=== PATIENT | male | born 1950 | race Caucasian/White ===

== ENCOUNTER 2022-02-20 10:44 | Day surgery (SDC) | payer MEDICARE, BC, SELFPAY ==
--- OUTSIDE RECORDS SUMMARY | 2022-02-07 09:34 | XMS_ITS | Continuity of Care Document ---
:1950 Author Care Team Providers Name Role Phone MD Luis L Primary Care Physician MEAGHAN Garcia S Attending Physician Allergies, Adverse Reactions, Alerts Allergen Type Severity Reaction Last Verified Status Updated Terbinafine Allergy Mild LOST SENSE August Yes Active OF TASTE 2019 Social History Smoking Status Status Start Date End Date Date of Observat ion Never smoked tobacco August 8:20am (finding) Additional Data Assigned Sex Male Problems Active Problems Medical Problem Onset Date Status Encounter for screening for Active COVID-19 Medications Medication Status Dose Units Route Directions Qty Days Start End Ins tructions Date Date Aspirin Active 81 MG PO Daily 100 Clopidogrel Active 75 MG PO Daily 30 Bisulfate (Plavix) 75 Mg TAB Methenamine Active 1 GM PO Twice A Day 60 Hippurate Metoprolol Active 25 MG PO Daily 30 Succinate (Toprol Xl) 25 Mg TABCR Multiple Active 1 TAB PO Daily Vitamins W/ Minerals (Multivitamin ) 1 Tab TAB Sildenafil Active 50 MG PO As Needed TAKE 1 TAB 1 Citrate HOUR PRIOR T O (Viagra) 50 INTERCOU RSE Mg TAB Tadalafil Active 20 MG PO As Needed 6 TAKE ONE (Cialis) 20 TABLET 3 0 MIN Mg TAB TO 36 HRS PRIOR TO INTERCOURSE Fluticasone Discontin 2 SPRAY EACH Daily 15 November Decembe Propionate ued NOSTR 12th, r 7th, (Nasal) 2017 2017 (Flonase 8:17pm 12:30pm Allergy Relief) 50 Mcg/Act SPR Multivitamins Discontin 1 TAB PO Daily August (Multivitamin ued , /Minerals) 2019 TAB 8:18am Sildenafil Discontin 50 MG PO As Needed August TAKE 1 TAB 1 Citrate ued 16, HOUR PRIOR T O (Viagra) 50 2019 INTERCOU RSE Mg TAB 8:18am Sildenafil Discontin 20 MG PO Three Times ry Citrate ued A Day , (Revatio) 20 2020 Mg TAB 8:18am Tadalafil Discontin 5 MG PO As Needed 22 August TAKE ONE TAB (Cialis) 5 Mg ued , 30 MIN TO 36 TAB 2020 HRS PRIOR TO 8:18am INTERCOURSE Immunizations Immunization Event Not Given Dose 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 In 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 Lot Number Vac cine Date Reason Number Informatio n Statement (VIS) Deta il COVID-19 Pfizer October 15 PFIZER-[employer]IONTECH [id number] 2020 COVID-19 Pfizer October 16 P[employer]ER[employer] [id number] 2020 Procedures Procedure Date Performed Status SARS-COV-2 COVID-19 AMP PRB January 08, 2022 completed Relevant Diagnostic Tests and/or Laboratory Data Laboratory Results Test Date/Time Result Interpretation Reference Result Perfo rming Site Range Comment Coronavirus January 08, NEGATIVE NEGATIVE [facility] [place] (COVID-19)(P 2021 SARS-CoV- novel [address]) 9:39am 2 coronavirus [facility] [address] (SARS-CoV-2) target nucleic acids are not detected by RT-PCR. This result does not rule out SARS-CoV-2 in the patient, as the sensitivity of the test depends on timing of the specimen collection and quality of the specimen. Results should be correlated with the patient's history and clinical presentation . Advance Directives Advance Directive Response Recorded Date/Time Has patient completed a No September 01 8:20am Health Care Directive? Insurance Providers Guarantor Abdirashid Espinoza Address [address] [facility] [address] Contact Info. Home Phone: CELL Payer Policy Id Coverage Id Subscriber's Subscriber Id Effective E xpiration Name Date Date Bc [employer] [id number] Abdirashid Espinoza [id number] Encounters Encounter Location(s) Arrival/Admit Date Discharge/Depart Date Provider(s) Registered [place] January 08, 2022 Anahi Garcia [facility] 9:39am FINANCE INTERN PHILIPPE Registered [facility] January 08, 2022 [facility] 9:30am Office Visit [place] January 08, 2022 Anahi Garcia [facility] 9:30am MEAGHAN PAEZ
[2022-02-20] VITALS (17 sets, daily range): BP systolic 105–133; BP diastolic 24–96; PULSE 52–73; RESP 12–16; TEMP 36.1–36.7; O2SAT 91–96; BMI 23.8
[2022-02-20] MEDS: LACTATED RINGERS 1000 ML 1,000 ML 100 ML IV (11:30)
[2022-02-20] MEDS: LACTATED RINGERS 1000 ML 1,000 ML 35 ML IV (15:15)
--- NOTE | 2022-02-20 15:22 | W.ANESCHARGE ---
Anesthesia Charges Start Date/Time Anesthesia Start Date: 02/20/22 Anesthesia Start Time: 12:08 Stop Date/Time Anesthesia Stop Date: 02/20/22 Anesthesia Stop Time: 15:22 Summary Emergency: No Extremes of Age: Over 70-CPT 18961
--- NOTE | 2022-02-20 15:36 | P.NB_ITS ---
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 Images saved: Yes Medications given in 5ml increments after negative aspiration: Marcaine %: 0.25 mL: 30 Needle gauge: 20 and Exparel mL: 10 Patient tolerated procedure well: Yes Additional comments: Needle noted adjacent to nerve
--- NOTE | 2022-02-20 15:37 | W.ANESCHARGE ---
Anesthesia Charges Start Date/Time Anesthesia Start Date: 02/20/22 Anesthesia Start Time: 12:08 Stop Date/Time Anesthesia Stop Date: 02/20/22 Anesthesia Stop Time: 15:22 Summary Emergency: No
--- NOTE | 2022-02-20 16:09 | PM.GSPRC ---
Operative Note Date of procedure: 02/20/22 Type of Procedure: Laparoscopic right inguinal hernia repair with mesh Procedure Description: After discussing the risks and benefits of the procedure, the patient signed informed consent.? The operative site was marked and the patient was brought to the operating room and placed on the operating table in supine position.? Care was taken to pad the patient's pressure points.?? The patient was then intubated by anesthesia.?? The operative site was then prepped and draped in the usual sterile fashion.? A time-out was then performed. A curvilinear incision was made below the umbilicus. Dissection was carried down to subcutaneous tissue until the anterior rectus fascia was encountered. This was incised off the midline on the right. There was some scarring from the patient's prior surgery, however I was able to enter the rectus sheath and identify the rectus muscle fibers. They were somewhat tethered medially, however I carefully dissected them away with a combination of sharp and blunt dissection. The rectus muscle fibers were then retracted exposing the posterior fascia. I placed an O-vicryl fascial stitch which I tagged, to be used for fascial closure later. A port with a dissecting balloon was then introduced into the pre-preperitoneal space.This was inflated under direct vision. The balloon was deflated and removed. There was some bleeding noted. A 10 mm working port was placed, however, the blood, presumably from the muscle or epigastric vessels was flowing into the port, obscuring vision. Because I had difficulty visualizing the space, I elected to close the fascia by tightening the suture and enter the peritoneal space through a midline cutdown approach. I incised the fascia in the midline and entered the peritoneum. I then insufflated the abdomen and visualized a rectus sheath hematoma which was not significantly large. I decided to perform the hernia repair with a Darrius approach, however, I was concerned that if I opened the rectus sheath and there was still bleeding, this might make the procedure difficult and may make it difficult to stop bleeding. I therefore called my partner to assist. I placed an 0 Vicryl fascial stitch around the peritoneal opening, and cinched this up. I then opened the incision off the midline into the rectus sheath and was able to expose the area. Dr. Epps then scrubbed in and I was able to identify with her exposure, what appeared to be an epigastric vessel or branch thereof which was bleeding near the incision. Once this was done we then decided to place the Peters port back into the preperitoneal space and insufflated. I placed a 5 mm port in the midline into the preperitoneal space and through this passed a suction duct layer helper. There was a small amount of clot that was suctioned out. The epigastric arteries were visualized somewhat more medial than usual. There was a branch that was stretched out laterally which I elected to clip proximally and distally lest this be a source of bleeding. Once this was done the area appeared to be completely hemostatic. We then removed the port and desufflated the space. I then began with a transabdominal repair in the usual fashion. I placed 2 5 mm ports on the lateral abdomen on either side of the midline. I then grasped the peritoneum and divided this using cautery proximally 5 cm proximal to the visible hernia on the right side. I then created a peritoneal flap. Of note, this was not contiguous with the hematoma cavity that was created during the dissection with the balloon dissector. Diogo's ligament and the pubic bone was exposed medially. Following this, dissection was carried out laterally. A direct defect was noted. This was reduced and the peritoneum was dissected free from the cord structures using a combination of sharp and blunt dissection. Once the sac was completely reduced, a piece of Bard 3DMax mesh for the appropriate side was placed into the abdomen. This was positioned with the marker pointed medially. A Tacker was used to attach the mesh medially at Diogo's ligament and 1 tack laterally with care to avoid the epigastric vessels and stay above the inguinal ligament. I then closed the peritoneal flap using a running V lock suture. Hemostasis appeared excellent both intra-abdominally and preperitoneally. The ports were removed. The fascial opening from both the preperitoneal space was examined and there was no further bleeding. The fascial stitch was then tied. The fascial stitch from the midline peritoneal fascial defect was then tied as well. The skin incisions were closed with absorbable subcuticular suture. Sterile dressings were then applied. The scrotum was examined to ensure that both testicles were down. Instrument sponge and needle counts were correct at the end of the case. ? Sterile dressings were then applied. ? The patient was then woken and transported to the recovery area in stable condition. ? The patient tolerated the procedure well. Findings: Direct right inguinal hernia. Bleeding from the epigastric vessels, precluding visualization of the preperitoneal space. Converted to Darrius after ensuring no further bleeding in the preperitoneal space. Anesthesia: GETA Surgeon: Lea Rios MD Estimated blood loss (mL): 25 Condition: stable Disposition: PACU
[2022-02-20] MEDS: HYDROCODONE-ACETAMIN 5-325 MG 1 TAB PO (16:13)
--- NOTE | 2022-02-20 17:37 | CRLHL7_ITS ---
For Patients: As a result of the Cures Act, medical imaging exams and procedure reports are released immediately into your electronic medical record. You may view this report before your referring provider. If you have questions, please contact your health care provider. INDICATION: Right laparoscopy surgery today TECHNIQUE: Chest radiograph 1 view right COMPARISON: None FINDINGS: Mediastinum: Previous median sternotomy and coronary artery bypass grafting (CABG) noted. The heart silhouette is normal in size and morphology. Lung: Small lung volumes are present with bibasilar atelectasis. There is gas lucency seen at the right lung base which may represent pneumoperitoneum from recent surgery. No sign of pleural effusion seen. No pneumothorax is identified. Bone and Soft tissue: Unremarkable for age. A small amount of soft tissue gas is seen along the right lateral chest wall. IMPRESSION: 1. There is gas lucency seen at the right lung base which may represent pneumoperitoneum from recent surgery. Dictated by Reid Lane MD @ 02/20/2022 6:25:21 PM Dictated by: Reid Lane MD @ 02/20/2022 18:25:28 (Electronically Signed)
--- NOTE | 2022-02-20 17:53 | P.GSHP_ITS ---
History of Present Illness History of Present Illness Chief complaint: surgery Narrative: Abdirashid Espinoza is a 71 year old male underwent laparoscopic right inguinal hernia repair today. Possibly from his prior repair, there was some scarring of the rectus muscle and the dissecting balloon did tear the epigastric vessel and this was controlled with suture ligation. There was not significant blood loss and the space appeared hemostatic after ligation. A transabdominal approach was pursued however. In the recovery area the patient was doing fine safe for some bilateral shoulder pain which was thought to be secondary to pneumoperitoneum. He was getting ready to discharge and he got up to go to the bathroom and then his repeat vital signs were somewhat lower. Heart rate remains in the 50s, however blood pressure was 100 systolic verses 30 previously. Also noted to drop for his oxygen saturations. The patient was not feeling particularly short of breath. Denies abdominal pain that is significant other than normal postoperative pain. He did have pain across his chest and shoulders. [facility] Medical History (Updated 02/19/22 @ 08:30 by Michaela Terrazas RN) Atrial fibrillation BPH (benign prostatic hyperplasia) Calculus of kidney Diverticulosis Dysthymic disorder Hepatitis Iliac artery aneurysm, left REJI on CPAP Paresthesia of foot, bilateral Prediabetes Surgical History (Updated 02/19/22 @ 08:30 by Michaela Terrazas RN) H/O inguinal hernia repair H/O urethrotomy H/O vasectomy History of mitral valve repair S/P laparoscopic hernia repair Status post endovascular aneurysm repair Social History Smoking Status: Never smoker How often do you have a drink containing alcohol: monthly or less Alcohol type: hard liquor How often do you have six or more drinks on one occasion: Less than monthly AUDIT-C Alcohol total score: 2 Non-prescribed substance use: denies use Caffeine: No Meds Home Medications and Allergies Allergies Allergy/AdvReac Type Severity Reaction Status Date / Time terbinafine Allergy Mild Lost sense Verified 02/20/22 11:29 of taste Exam Narrative: Exam Narrative: General appearance: Alert, cooperative, and in no distress Eyes: PERRLA, eye lids clear, and sclera white HENT Head: Normocephalic Ears: External ears normal Pulmonary: clear bilaterally Cardiovascular Heart: regular rate and rhythm Extremities: warm and well perfused Gastrointestinal Abdominal: soft, no masses. Appropriately tender for the postoperative state. Nondistended. Musculoskeletal: Extremities: Upper: Both upper extremities have normal joint range of motion and intact strength. Lower: Both lower extremities have normal joint range of motion and intact strength. Skin: Normal skin color, texture, and turgor. No rashes or lesions. Neurologic: No focal deficits Psychiatric: Alert, oriented, cooperative, normal affect. Const: Vital Signs, click to edit/add: Vital Signs - 24 hr 02/20/22 11:22 02/20/22 15:16 02/20/22 15:20 Temperature 97 F L 98.1 F Pulse Rate 52 L 60 58 L Respiratory Rate 16 14 12 Blood Pressure 130/83 124/24 L 124/70 Pulse Oximetry 95 96 92 02/20/22 15:25 02/20/22 15:30 02/20/22 15:35 Temperature Pulse Rate 64 64 60 Respiratory Rate 16 16 14 Blood Pressure 120/64 116/78 130/74 Pulse Oximetry 91 92 95 02/20/22 15:40 02/20/22 15:45 02/20/22 15:55 Temperature 97.1 F L 97.7 F Pulse Rate 60 60 59 L Respiratory Rate 12 14 16 Blood Pressure 124/70 130/74 132/74 Pulse Oximetry 94 94 94 02/20/22 16:10 02/20/22 16:26 02/20/22 16:50 Temperature 97.7 F 97.7 F 97.7 F Pulse Rate 57 L 57 L 57 L Respiratory Rate 16 16 16 Blood Pressure 133/77 131/71 129/96 H Pulse Oximetry 93 94 94 02/20/22 17:25 Temperature 97.8 F Pulse Rate 55 L Respiratory Rate 16 Blood Pressure 105/61 Pulse Oximetry 92 Results Results Chest x-ray: image reviewed ( No significant infiltrate. No pneumothorax. Does have subcutaneous emphysema. Will discuss with Radiology.) EKG: report reviewed ( Demonstrates normal sinus rhythm with occasional premature ventricular complexes.) Assessment and Plan Assessment and plan Plan The patient is a 71-year-old male with a history of mitral valve repair, on aspirin, Plavix and beta-nelson who is now status post laparoscopic right inguinal hernia repair. Was a little hypoxic and also hypotensive in the recovery area with some bilateral shoulder pain. Because of these findings I have elected to keep him overnight. Chest x-ray preliminary does not show pneumothorax or any significant infiltrate. EKG shows normal sinus rhythm. Will await CBC, troponin, BMP.
--- NOTE | 2022-02-20 17:59 | SUR.PHASEII ---
preparing to send pt home when his o2 sats dipped intothe 80's and bp into the 100/50's. pt felt light headed. Dr Rios ordered labs, ekg, chest xray. also to move pt to [facility] for observation. pt is overalll stable and not experiencing significant pain other than in his shoulders and neck.
[2022-02-20 18:08] LABS: Basophils Absolute Auto 0.01 K/uL (0.00-0.30); Basophils Percent Auto 0.1 % (0.0-3.0); Eosinophils Absolute Auto 0.01 K/uL (0.00-0.50); Eosinophils Percent Auto 0.1 % (0.0-7.0); Hematocrit 42.9 % (37.0-53.0); Hemoglobin* 13.9 gm/dL (13.5-17.5); Immature Granulocytes Abs Auto 0.03 K/uL (0.00-0.30); Lymphocytes Percent Auto 8.9 % (20-44); Mean Corpuscular HGB Conc 32 gm/dL (32-36); Mean Corpuscular Hemoglobin 29 pg (26-34); Mean Corpuscular Volume 90 fL (80-100); Monocytes Percent Auto 6.5 % (0.0-11.0); Neutrophils Percent Auto 84.1 % (42.0-72.0); Platelet Count* 125 K/uL (140-440); RDW Coefficient of Variation % 15.1 % (11.5-15.5); Red Blood Count 4.75 m/uL (4.30-5.90); White Blood Count* 10.32 K/uL (4.50-11.00)
[2022-02-20 18:10] LABS: Slide Review Reflex No
[2022-02-20 18:21] LABS: Albumin* 3.7 g/dL (3.3-5.0); Chloride* 108 mmol/L (96-114)
[2022-02-20 18:22] LABS: Potassium* 3.7 mmol/L (3.6-5.1); Sodium* 139 mmol/L (135-149)
[2022-02-20 18:24] LABS: Aspartate Amino Transferase* 23 U/L (12-35); Bilirubin Total* 1.1 mg/dL (0.1-1.5); Carbon Dioxide* 23 mmol/L (20-32); Creatinine* 0.8 mg/dL (0.5-1.5); Est. Creatinine Clearance* 72.16; Estimated Glomerular Filt Rate 94.62; Total Protein* 6.1 g/dL (6.0-8.3)
[2022-02-20 18:25] LABS: Alanine Aminotransferase* 16 U/L (4-50); Alkaline Phosphatase* 89 U/L (40-150); Blood Urea Nitrogen* 27 mg/dL (7-30); Calcium* 8.6 mg/dL (8.4-10.6); Glucose* 152 mg/dL (60-115)
[2022-02-20] MEDS: ACETAMINOPHEN 325 MG TABLET 650 MG PO (18:34)
[2022-02-20 18:39] LABS: Troponin I* < 0.01 ng/mL (0.01-0.04)
--- NOTE | 2022-02-20 20:00 | PC.NURSE ---
[id number]- Patient arrives to floor at approximately 1820. He is accompanied by . Lap sites with steristrips with scant amount of blood. He denies nausea and tolerates eating and drinking. Saturations are mid 90s%. Pain is well controlled with PRN pain medication. He is up to walk with brief initial lightheadedness upon standing, which resolved and otherwise tolerated ambulation without issue. Dr. Gabriel MD, is updated and gives ok to D/C patient to home. Discharge instructions given verbally and in print. He leaves at 1999 with all belongings with .
--- NOTE | 2022-02-21 10:09 | P.EN_ITS ---
Chart Event Note Chart Event Note: Abdirashid Espinoza is a 71 year old male underwent laparoscopic right inguinal hernia repair today. Possibly from his prior repair, there was some scarring of the rectus muscle and the dissecting balloon did tear the epigastric vessel and this was controlled with suture ligation. There was not significant blood loss and the space appeared hemostatic after ligation. A transabdominal approach was pursued however. In the recovery area the patient was doing fine safe for some bilateral shoulder pain which was thought to be secondary to pneumoperitoneum. He was getting ready to discharge and he got up to go to the bathroom and then his repeat vital signs were somewhat lower. Heart rate remai ns in the 50s, however blood pressure was 100 systolic verses 30 previously. Also noted to drop for his oxygen saturations. The patient was not feeling particularly short of breath. Denies abdominal pain that is significant other than normal postoperative pain. He did have pain across his chest and shoulders. Breath sounds were equal bilaterally. Heart was regular rate and rhythm on exam. Abdomen was soft and minimally tender to palpation. EKG, chest x-ray, chemistries, troponin CBC were all obtain which were all within normal limits. The patient was admitted to observation on the medical floor and within approximately 2 hours he felt well enough to discharge home with stable vital signs.. I presume the event was likely pain from pneumoperitoneum combined with vasovagal event.
== END 2022-02-20 20:00 | disposition home or self-care (01) ==
LOC: OR 15:32 → MEDSURG 19:40
PROVIDERS: PCP Family Medicine; Visit Provider Surgery
PROC: (CPT 49650; principal; 2022-02-20 12:00)
DX: K40.90 Unilateral inguinal hernia, without obstruction or gangrene, not specified as recurrent (principal)
CPT/HCPCS: 49650; 36415; 71045; 80053; 830; 832; 84484; 85025; 85610; 99100; A9270; C1781; J0330; J2250; J2704; J3010; J3490; J7120

== ENCOUNTER 2023-04-14 17:51 | Inpatient (IN) | payer MEDICARE, BC, SELFPAY ==
[2023-04-14 18:21] VITALS: BP 137/98; PULSE 60; RESP 18; TEMP 36.8; BMI 24.6
--- NOTE | 2023-04-14 18:26 | P.GSCN_ITS ---
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 While there he did mention that he has been intermittently short of breath with exertion and woken up twice in the last week with right-sided chest pain. A chest x-ray was obtained which shows a moderate-sized pneumothorax of the right. He denies any trauma to the area. He is able to talk in complete sentences. He initially attributed his shortness of breath with walking or climbing up pills secondary to being out of shape. His medical history significant for open heart surgery for a mitral valve replacement in August 2020. And this procedure was complicated by bilateral pneumothoraces postoperatively. His last echo on 11/2021 showed normal ejection fraction. He last saw cardiology 01/19/2023 with plan for repeat ECHO. Review of Systems Status of ROS: Reports: 6 or more systems reviewed and unremarkable except as noted in History and below [facility] Medical History (Updated 04/14/23 @ 18:35 by Sharon Blas MD) Prediabetes ?R73.03 - Prediabetes (ICD-10) Paresthesia of foot, bilateral ?R20.2 - Paresthesia of skin (ICD-10) REJI on CPAP ?G47.33 - Obstructive sleep apnea (adult) (pediatric) (ICD-10) ?Z99.89 - Dependence on other enabling machines and devices (ICD-10) Iliac artery aneurysm, left ?I72.3 - Aneurysm of iliac artery (ICD-10) Hepatitis ?K75.9 - Inflammatory liver disease, unspecified (ICD-10) Dysthymic disorder ?F34.1 - Dysthymic disorder (ICD-10) Diverticulosis ?K57.90 - Diverticulosis of intestine, part unspecified, without perforation or abscess without bleeding (ICD-10) Calculus of kidney ?N20.0 - Calculus of kidney (ICD-10) BPH (benign prostatic hyperplasia) ?N40.0 - Benign prostatic hyperplasia without lower urinary tract symptoms (ICD-10) Atrial fibrillation ?I48.91 - Unspecified atrial fibrillation (ICD-10) Surgical History (Updated 02/19/22 @ 08:30 by Michaela Terrazas RN) H/O vasectomy ?Z98.52 - Vasectomy status (ICD-10) History of mitral valve repair ?Z98.890 - Other specified postprocedural states (ICD-10) S/P laparoscopic hernia repair ?Z98.890 - Other specified postprocedural states (ICD-10) ?Z87.19 - Personal history of other diseases of the digestive system (ICD-10) H/O inguinal hernia repair ?Z98.890 - Other specified postprocedural states (ICD-10) ?Z87.19 - Personal history of other diseases of the digestive system (ICD-10) H/O urethrotomy ?Z98.890 - Other specified postprocedural states (ICD-10) Status post endovascular aneurysm repair ?Z98.890 - Other specified postprocedural states (ICD-10) ?Z86.79 - Personal history of other diseases of the circulatory system (ICD- 10) Social History Smoking Status: Never smoker How often do you have a drink containing alcohol: monthly or less Alcohol type: hard liquor How often do you have six or more drinks on one occasion: Less than monthly AUDIT-C Alcohol total score: 2 Non-prescribed substance use: denies use Caffeine: No Meds Home Medications and Allergies Allergies Allergy/AdvReac Type Severity Reaction Status Date / Time terbinafine Allergy Mild Lost sense Verified 02/20/22 11:29 of taste Exam Narrative: Exam Narrative: general: Alert and oriented, no acute distress respiratory: Maintained on room air. Decreased breath sounds on the right. CV: Regular rhythm and rate Results Labs Labs: labs are pending. Chest x-ray reviewed from outside clinic with evidence of moderate-sized right pneumothorax and new thoracic aneurysm. Imaging Chest x-ray: report reviewed and image reviewed Assessment and Plan Assessment and plan (1) Pneumothorax, right: Status: Acute Plan Patient is a 73-year-old male who presents with clinical workup demonstrating a spontaneous right-sided pneumothorax. He does have history of open heart surgery via sternotomy in August 2020. Postoperatively he did have evidence of bilateral pneumothoraces, which resolved with chest tube placement. He denies trauma as an etiology for the most recent pneumothorax. Given the size and patient's symptoms recommend placement of a chest tube at bedside. Will have Anesthesia administer some MAC sedation for the procedure. Risks and benefits of procedure were discussed at length the patient. All questions and concerns addressed with him agreeing to proceed. Patient tolerated procedure well. Will leave to -20 suction tonight with plan for repeat chest x-ray tomorrow morning. General Surgery Procedures Moderate Sedation Message Please read if using moderate sedation: Please see anesthesia note. Chest Tube Chest Tube 1: Chest tube location: Mid-Axillary Chest Size of tube: 16 Procedure: placement Preperation: Yes sterile drapes applied and other Tube sutured to skin: Yes Sterile dressing applied: Yes Anesthesia: 1% Lidocaine Volume anesthetic (ml): 5 Incision made with: other (15) Post procedure: sutured to skin and sterile dressing applied Lazaro of air heard: Yes (Small amount of air heard during procedure. ) Tube Drainage: none Post procedure CXR?: Yes Patient tolerated procedure: Yes Progress: Tube is short in length but appears to be in good position. Sutured to skin to avoid displacement.
--- NOTE | 2023-04-14 19:21 | CRLHL7_ITS ---
For Patients: As a result of the Century Cures Act, medical imaging exams and procedure reports are released immediately into your electronic medical record. You may view this report before your referring provider. If you have questions, please contact your health care provider. INDICATION: s/p right chest tube placement. TECHNIQUE: Chest 1 views. COMPARISON: None. FINDINGS: Cardiovascular and mediastinum: Cardiomediastinal silhouette is within normal limits. Prosthetic heart valve. Lungs and pleural spaces: Right sided chest tube with distal tip near the right upper lobe. Side ports may be in the chest wall. Moderate right pneumothorax, most notably at the right lower lung zone. Bones and soft tissues: Median sternotomy wires appear intact. IMPRESSION: Right sided chest tube with distal tip at the mid right upper lung zone. The side ports may be in the chest wall. Moderate right sided pneumothorax. Dictated by Racheal Arciniega MD @ 04/14/2023 8:21:07 PM (Electronically Signed)
--- NOTE | 2023-04-14 19:31 | W.ANESCHARGE ---
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
[2023-04-14 19:45] VITALS: BP 130/90; PULSE 65; RESP 22; O2SAT 92
--- NOTE | 2023-04-14 19:55 | PC.NURSE ---
Nursing Care Hours: [id number] Pt ambulated onto unit from direct admission after clinic visit. Minor SOB with exertion. VSS at bedside. LS clear, left proximal lungs diminished. Pt alert and oriented. Independent ambulation and all cares. IV started to left forearm. Admission data collected, pt prepped for chest tube placement at bedside. Tolerated procedure well, alert and oriented after procedure. Report given to oncoming nurse.
--- NOTE | 2023-04-14 21:13 | P.IMHP_ITS ---
Hospitalist- H&P: HPI History of Present Illness Date Seen: 04/14/23 Chief complaint: Direct admit Narrative: Abdirashid Espinoza is a 73 year old male who presented to the hospital at the behest of his PCP, Dr. Smith, today for a right-sided pneumothorax. He was see Dr. Smith for a suture removal and happen to mention that twice in the past 9 months, he has woken up with pleuritic chest pain, followed by a few days dyspnea on exertion and increased fatigue. He has also noted decreased exercise tolerance and more dyspnea over the past 5- 6 days. No chest pain. No palpitations. No recent trauma. Chest x-ray in clinic revealed a 3.5 cm right-sided pneumothorax, in addition to a 5 cm thoracic aortic aneurysm. Patient presented to the hospital for this finding; he was seen by our general surgeon, Dr. Blas, and right-sided chest tube was placed. When I see Abdirashid, he is feeling well. He has no concerns for the hospitalist team. Histories updated below. Review of Systems Status of ROS: Reports: 10 or more systems reviewed and unremarkable except as noted in History and below [facility] Medical History (Updated 04/14/23 @ 21:33 by Cyndy Koroma MD) Prediabetes ?R73.03 - Prediabetes (ICD-10) Paresthesia of foot, bilateral ?R20.2 - Paresthesia of skin (ICD-10) REJI on CPAP ?G47.33 - Obstructive sleep apnea (adult) (pediatric) (ICD-10) ?Z99.89 - Dependence on other enabling machines and devices (ICD-10) Iliac artery aneurysm, left ?I72.3 - Aneurysm of iliac artery (ICD-10) Hepatitis ?K75.9 - Inflammatory liver disease, unspecified (ICD-10) Dysthymic disorder ?F34.1 - Dysthymic disorder (ICD-10) Diverticulosis ?K57.90 - Diverticulosis of intestine, part unspecified, without perforation or abscess without bleeding (ICD-10) Calculus of kidney ?N20.0 - Calculus of kidney (ICD-10) BPH (benign prostatic hyperplasia) ?N40.0 - Benign prostatic hyperplasia without lower urinary tract symptoms (ICD-10) Atrial fibrillation ?I48.91 - Unspecified atrial fibrillation (ICD-10) Surgical History (Updated 02/19/22 @ 08:30 by Michaela Terrazas RN) H/O vasectomy ?Z98.52 - Vasectomy status (ICD-10) History of mitral valve repair ?Z98.890 - Other specified postprocedural states (ICD-10) S/P laparoscopic hernia repair ?Z98.890 - Other specified postprocedural states (ICD-10) ?Z87.19 - Personal history of other diseases of the digestive system (ICD-10) H/O inguinal hernia repair ?Z98.890 - Other specified postprocedural states (ICD-10) ?Z87.19 - Personal history of other diseases of the digestive system (ICD-10) H/O urethrotomy ?Z98.890 - Other specified postprocedural states (ICD-10) Status post endovascular aneurysm repair ?Z98.890 - Other specified postprocedural states (ICD-10) ?Z86.79 - Personal history of other diseases of the circulatory system (ICD- 10) Social History (Updated 04/14/23 @ 21:23 by Cyndy Koroma MD) Narrative: Lives with partner Tiny (medical decision maker if needed) in [place]. Two adult daughters and grandchildren live in the [facility]. 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 Previously worked for [employer]. Nonsmoker, rare alcohol. Full code. What is your current living situation?: I presently have a place to live Problems where you live: no known problems Problems where you live details: n/a In the past 12 months, utilities in danger of being shut off: no In the past 12 mos, have been you worried that your food would run out before you had money to buy more?: never true In the past 12 mos, the food you bought just didn't last and you didn't have money to buy more?: never true Highest level of school completed/degree received: Professional degree (, [employer]AT[employer], DVM, DDS) Smoking Status: Never smoker Do you use any of these nicotine containing products: None Second hand tobacco smoke exposure: No How often do you have a drink containing alcohol: monthly or less Alcohol type: hard liquor How many standard drinks containing alcohol do you have on a typical day: 1 or 2 How often do you have six or more drinks on one occasion: Never AUDIT-C Alcohol total score: 1 Non-prescribed substance use: denies use Caffeine: No How often does anyone, including family, friends and others, physically hurt you : never How often does anyone, including family, friends and others, insult or talk down to you: never How often does anyone, including family, friends and others, threaten you with harm: never How often does anyone, including family, friends and others, scream or curse at you: never service: No Meds Home Medications and Allergies Home Medications Medication Instructions Recorded Confirmed Type aspirin 81 mg tablet,delayed 81 mg PO DAILY 04/14/23 04/14/23 History release metoprolol succinate 25 mg 25 mg PO DAILY 04/14/23 04/14/23 History tablet,extended release 24 hr Allergies Allergy/AdvReac Type Severity Reaction Status Date / Time terbinafine Allergy Mild Lost sense Verified 02/20/22 11:29 of taste Exam Narrative: Exam Narrative: GEN: Alert and oriented, sitting comfortably in bed and nontoxic in appearance HEENT: EOMIs bilaterally, no scleral icterus CV: RRR, No concerning murmurs R: No concerning wheezing, decreased breath sounds on the right, chest tube in place Ext: wwp, no concerning edema Skin: No concerning skin lesions or rashes on exposed skin Neuro: Nonfocal Psych: Appropriate Const: Vital Signs, click to edit/add: Vital Signs - 24 hr 04/14/23 18:21 Temperature 98.3 F Pulse Rate [Right Pulse Oximeter] 60 Respiratory Rate 18 Blood Pressure [Ri ght Arm] 137/98 H Assessment and Plan Assessment and plan (1) Pneumothorax, right: Problem comment: - chest tube placed by Dr. 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
[2023-04-14] MEDS: ACETAMINOPHEN 325 MG TABLET 975 MG PO (21:31)
[2023-04-14 22:12] VITALS: BP 123/77; PULSE 60; RESP 20; TEMP 36.9; O2SAT 93
--- NOTE | 2023-04-14 22:26 | PC.NURSE ---
191: B/P 153/93 HR 79 sinus arrythmia O2 94% mask at 10 lpm RR 18 End Tidal 28 1913: Propofol IV per PLANT INSPECTOR 1914: Additional Propofol given IV per PLANT INSPECTOR 1915: Lidocaine topically per 1915: Chest Tube Placed by Dr. Blas HR 61, End Tidal 17 Oxygen 98% mask at 10 lpm Patient tolerated procedure well.
[2023-04-14 22:34] VITALS: RESP 20; O2SAT 92
[2023-04-14 22:46] VITALS: RESP 20; O2SAT 93
[2023-04-14 22:47] VITALS: O2SAT 93
[2023-04-15] VITALS (18 sets, daily range): BP systolic 110–142; BP diastolic 66–93; PULSE 51–73; RESP 14–18; TEMP 36.6–36.9; O2SAT 90–96
[2023-04-15] MEDS: OXYCODONE 5 MG TABLET PO (02:37)
[2023-04-15] MEDS: ACETAMINOPHEN 325 MG TABLET 975 MG PO ×2 (04:46→11:14)
[2023-04-15 06:24] LABS: Basophils Absolute Auto 0.03 K/uL (0.00-0.30); Basophils Percent Auto 0.5 % (0.0-3.0); Eosinophils Absolute Auto 0.35 K/uL (0.00-0.50); Eosinophils Percent Auto 6.2 % (0.0-7.0); Hematocrit 41.7 % (37.0-53.0); Hemoglobin* 13.8 gm/dL (13.5-17.5); Lymphocytes Absolute Auto 1.67 K/uL (0.90-2.90); Lymphocytes Percent Auto 29.4 % (20-44); Mean Corpuscular HGB Conc 33 gm/dL (32-36); Mean Corpuscular Hemoglobin 30 pg (26-34); Mean Corpuscular Volume 90 fL (80-100); Monocytes Percent Auto 12.3 % (0.0-11.0); Neutrophils Absolute Auto 2.93 K/uL (1.7-7.0); Neutrophils Percent Auto 51.6 % (42.0-72.0); Platelet Count* 132 K/uL (140-440); RDW Coefficient of Variation % 14.9 % (11.5-15.5); Red Blood Count 4.63 m/uL (4.30-5.90); White Blood Count* 5.68 K/uL (4.50-11.00)
[2023-04-15 06:34] LABS: Slide Review Reflex No
[2023-04-15 06:35] LABS: Chloride* 105 mmol/L (96-114); Sodium* 139 mmol/L (135-149)
[2023-04-15 06:37] LABS: Creatinine* 0.7 mg/dL (0.5-1.5); Est. Creatinine Clearance* 70.07; Estimated Glomerular Filt Rate 97 ml/min
--- NOTE | 2023-04-15 06:37 | PC.NURSE ---
[id number]: Patient pleasant and cooperative with cares. SBA d/t chest tube. Requires 1-2 Lt NC to maintain sats >90%. Denies SOB/CP/dizziness/N/V. Rates pain 2-3/10, PRN medications administered for relief.
[2023-04-15 06:38] LABS: Anion Gap 6 mEq/L (7-15); Blood Urea Nitrogen* 21 mg/dL (7-30); Calcium* 8.4 mg/dL (8.4-10.6); Carbon Dioxide* 28 mmol/L (20-32); Glucose* 80 mg/dL (60-115)
--- NOTE | 2023-04-15 07:00 | CRLHL7_ITS ---
For Patients: As a result of the Century Cures Act, medical imaging exams and procedure reports are released immediately into your electronic medical record. You may view this report before your referring provider. If you have questions, please contact your health care provider. INDICATION: TECHNIQUE: CTA chest was acquired with 100 cc Omnipaque 350 IV contrast. COMPARISON: Chest x-ray April 14, 2023. FINDINGS: Heart and vasculature: Prior median sternotomy. Heart size is normal. Thoracic aorta and pulmonary artery are normal in caliber.Ectatic descending thoracic aorta. No evidence of aortic dissection. Mild thoracic aorta and coronary artery calcifications. Lungs and pleural: Right-sided chest tube with tip within the mid upper lateral pleural space. There is large right-sided pneumothorax most prominent at the lung base. There is prominent shifting of the mediastinum and heart to the left. There is associated collapse of the right lower lobe and/or consolidation. Mild left basilar atelectasis. Mild pulmonary emphysema. Lymph nodes/mediastinum: No mediastinal, hilar, or axillary adenopathy. Chest wall: Small amount of subcutaneous emphysema along the right lateral chest wall and chest tube placement. Upper abdomen: No acute or significant findings. Bones: Unremarkable for age. IMPRESSION: Right-sided chest tube with tip within the mid upper lateral pleural space. There is large right-sided pneumothorax most prominent at the lung base. There is prominent shifting of the mediastinum and heart to the left. There is associated collapse of the right lower lobe and/or consolidation. Given differences in technique the pneumothorax appears larger than it did on chest radiograph from the day prior. Please note that all CT scans at this facility use dose modulation, iterative reconstruction, and/or weight-based dosing when appropriate to reduce radiation dose to as low as reasonably achievable. Dictated by Adarsh Pham MD @ 04/15/2023 8:32:19 AM (Electronically Signed)
--- NOTE | 2023-04-15 08:25 | CRLHL7_ITS ---
For Patients: As a result of the Century Cures Act, medical imaging exams and procedure reports are released immediately into your electronic medical record. You may view this report before your referring provider. If you have questions, please contact your health care provider. INDICATION: CHECK PNEUMO STABILITY/SIZE TECHNIQUE: Chest 1 views. COMPARISON: April 14, 2023. IMPRESSION: There has been interval retraction of the chest tube with tip now appearing to be less than 1 cm within the pleural space near the right lateral periphery. When compared to chest x-ray from yesterday there is increasing now large right pneumothorax with similar leftward midline shift. As seen on same-day CT there is new right lung base collapse/pneumonia or aspiration. Left basilar atelectasis. Primary sternotomy. Stable cardiomegaly. Dictated by Adarsh Pham MD @ 04/15/2023 9:28:12 AM (Electronically Signed)
[2023-04-15] MEDS: SODIUM CHLORIDE 0.9 % (FLUSH) 10 ML SYRINGE 5 ML IVF ×3 (11:15→13:05)
--- NOTE | 2023-04-15 11:42 | P.IMPN_ITS ---
Progress Note: A&P Assessment and plan (1) Pneumothorax, right: Problem details: - chest tube placed by Dr. Blas 04/14 - CT exhibits persistent PTX on 04/15, transfer to tertiary care center initiated - Reviewed with Dr. Weaver of thoracic surgery on 04/15, patient on [facility] wait list for transfer at this time Status: Acute (2) Thoracic aortic aneurysm (TAA): Problem details: - noted on CXR in clinic 04/14, no concerning findings on CT with contrast performed 04/15 Status: Acute (3) SVT (supraventricular tachycardia): Problem details: - Noted on certified lactation counselor in 2021, started on metoprolol with no further issues - continue metoprolol during stay - continue telemetry Status: Acute Plan - per above - await transfer - appreciate assistance/management from General Surgery Subjective Date Seen: 04/15/23 Interval history: No acute events overnight. CT obtained this morning with results below. Given loculations and adhesions on CT and need for a 2nd chest tube, Dr. Blas of general surgery does recommend transfer to a tertiary care center. CT results IMPRESSION: Right-sided chest tube with tip within the mid upper lateral pleural space. There is large right-sided pneumothorax most prominent at the lung base. There is prominent shifting of the mediastinum and heart to the left. There is associated collapse of the right lower lobe and/or consolidation. Given differences in technique the pneumothorax appears larger than it did on chest radiograph from the day prior. Please note that all CT scans at this facility use dose modulation, iterative reconstruction, and/or weight-based dosing when appropriate to reduce radiation dose to as low as reasonably achievable. Dictated by Adarsh Pham MD @ 04/15/2023 8:32:19 AM Exam Narrative: Exam Narrative: GEN: Alert and oriented, speaking in full sentences. Sitting comfortably in bedside chair HEENT: EOMIs bilaterally, no scleral icterus CV: RRR, No concerning murmurs R: Chest tube in place Ext: wwp, no concerning edema Skin: No concerning skin lesions or rashes on exposed skin Neuro: Nonfocal Psych: Appropriate Const: Vital Signs, click to edit/add: Vital Signs - 24 hr 04/14/23 18:21 04/14/23 19:45 04/14/23 22:12 Temperature 98.3 F 98.5 F Pulse Rate Pulse Rate [Right Pulse Oximeter] 60 65 60 Respiratory Rate 18 22 20 Blood Pressure [Ri ght Arm] 137/98 H 130/90 H 123/77 Pulse Oximetry 92 93 Oxygen Delivery Me thod Nasal Cannula Nasal Cannula Oxygen Flow Rate 2.0 1.0 04/14/23 22:34 04/14/23 22:46 04/14/23 22:47 Temperature Pulse Rate Pulse Rate [Right Pulse Oximeter] Respiratory Rate 20 20 Blood Pressure [Ri ght Arm] Pulse Oximetry 92 93 93 Oxygen Delivery Me thod Nasal Cannula Nasal Cannula Oxygen Flow Rate 2.0 2.0 04/15/23 00:51 04/15/23 02:39 04/15/23 08:29 Temperature 97.8 F 98.0 F Pulse Rate 51 L Pulse Rate [Right Pulse Oximeter] 52 L 56 L Respiratory Rate 18 16 Blood Pressure [Ri ght Arm] 137/90 H 132/84 Pulse Oximetry 93 92 Oxygen Delivery Me thod Nasal Cannula Nasal Cannula Oxygen Flow Rate 1.5 1.5 04/15/23 08:30 04/15/23 08:30 04/15/23 09:44 Temperature Pulse Rate Pulse Rate [Right Pulse Oximeter] Respiratory Rate Blood Pressure [Ri ght Arm] Pulse Oximetry 92 92 90 Oxygen Delivery Me thod Room Air Nasal Cannula Oxygen Flow Rate 2.5 04/15/23 09:50 Temperature Pulse Rate 73 Pulse Rate [Right Pulse Oximeter] Respiratory Rate Blood Pressure [Ri ght Arm] Pulse Oximetry Oxygen Delivery Me thod Oxygen Flow Rate Labs Labs: Laboratory Results - last 24 hr 04/15/23 05:53 WBC 5.68 RBC 4.63 Hgb 13.8 Hct 41.7 MCV 90 MCH 30 MCHC 33 RDW Coeff of Tj 14.9 Plt Count 132 L Neut % (Auto) 51.6 Lymph % (Auto) 29.4 Clark % (Auto) 12.3 H Eos % (Auto) 6.2 Baso % (Auto) 0.5 Neut # (Auto) 2.93 Lymph # (Auto) 1.67 Clark # (Auto) 0.70 Eos # (Auto) 0.35 Baso # (Auto) 0.03 Abs Immat Gran (auto) 0.00 Imm/Tot Granulo (auto) 0.0 Sodium 139 Potassium 4.0 Chloride 105 Carbon Dioxide 28 Anion Gap 6 L BUN 21 Creatinine 0.7 Estimated Creat Clear 70.07 Estimated GFR 97 Glucose 80 Calcium 8.4 TSH 1.230
--- NOTE | 2023-04-15 12:30 | PM.GSPN ---
Subjective Subjective Date Seen: 04/15/23 Interval history: Patient is doing well this morning. He denies any increasing shortness of breath or chest pain. He does have a little bit of pain at the chest tube insertion site. Exam Narrative: Exam Narrative: General: Alert and oriented, no acute distress Pulmonary: Equal breath rise bilaterally. Right-sided chest tube is in place. There is some title shifting and bubbles, indicating an air leak Const: Vital Signs, click to edit/add: Vital Signs - 24 hr 04/14/23 18:21 04/14/23 19:45 04/14/23 22:12 Temperature 98.3 F 98.5 F Pulse Rate Pulse Rate [Right Pulse Oximeter] 60 65 60 Respiratory Rate 18 22 20 Blood Pressure [Ri ght Arm] 137/98 H 130/90 H 123/77 Pulse Oximetry 92 93 Oxygen Delivery Me thod Nasal Cannula Nasal Cannula Oxygen Flow Rate 2.0 1.0 04/14/23 22:34 04/14/23 22:46 04/14/23 22:47 Temperature Pulse Rate Pulse Rate [Right Pulse Oximeter] Respiratory Rate 20 20 Blood Pressure [Ri ght Arm] Pulse Oximetry 92 93 93 Oxygen Delivery Me thod Nasal Cannula Nasal Cannula Oxygen Flow Rate 2.0 2.0 04/15/23 00:51 04/15/23 02:39 04/15/23 08:29 Temperature 97.8 F 98.0 F Pulse Rate 51 L Pulse Rate [Right Pulse Oximeter] 52 L 56 L Respiratory Rate 18 16 Blood Pressure [Ri ght Arm] 137/90 H 132/84 Pulse Oximetry 93 92 Oxygen Delivery Me thod Nasal Cannula Nasal Cannula Oxygen Flow Rate 1.5 1.5 04/15/23 08:30 04/15/23 08:30 04/15/23 09:44 Temperature Pulse Rate Pulse Rate [Right Pulse Oximeter] Respiratory Rate Blood Pressure [Ri ght Arm] Pulse Oximetry 92 92 90 Oxygen Delivery Me thod Room Air Nasal Cannula Oxygen Flow Rate 2.5 04/15/23 09:50 04/15/23 11:30 Temperature 98.5 F Pulse Rate 73 Pulse Rate [Right Pulse Oximeter] 57 L Respiratory Rate 18 Blood Pressure [Ri ght Arm] 110/66 Pulse Oximetry 91 Oxygen Delivery Me thod Nasal Cannula Oxygen Flow Rate 2 Labs/Imaging Imaging Imaging: CT chest reviewed, evidence of loculated pneumothorax that is increasing in size. Chest x-ray after chest tube was placed back on suction demonstrates dislodgement of chest tube. Progress Note: A&P Assessment and plan (1) Pneumothorax, right: Problem details: - chest tube placed by Dr. Blas 04/14 - CT exhibits persistent PTX on 04/15, transfer to tertiary care center initiated - Reviewed with Dr. Weaver of thoracic surgery on 04/15, patient on [facility] wait list for transfer at this time Status: Acute Assessment and Plan: Patient is status post right-sided chest tube placement. CT of the chest did demonstrate an increasing pneumothorax with evidence of loculations. Initially, there was concern about how the suction was functioning in the chest tube canister. This did appear to be not hooked up appropriately. Once patient was appropriately placed on -20 suction a repeat chest x-ray was obtained. This showed a stable pneumothorax, with no evidence of dislodgement of the chest tube. Chest tube did likely dislodged during transfer. Will plan for replacement of chest tube at bedside today. Given the presence of loculations and the pneumothorax even with placement of a new chest tube I do think that the patient will need evaluation by thoracic surgery. He is currently on the wait list for transfer.
[2023-04-15] MEDS: MIDAZOLAM HCL 1 MG/ML inj 2 MG IVP (13:03)
[2023-04-15] MEDS: fentaNYL 100 MCG/2 ML inj IVP (13:04)
--- NOTE | 2023-04-15 13:11 | CRLHL7_ITS ---
For Patients: As a result of the Century Cures Act, medical imaging exams and procedure reports are released immediately into your electronic medical record. You may view this report before your referring provider. If you have questions, please contact your health care provider. INDICATION: Chest tube placement COMPARISON: April 15, 2023 at 8:50 a.m. TECHNIQUE: Single-view study April 15, 2023 1:35 p.m. FINDINGS: TUBES AND LINES: Newly placed chest tube on the right ending at the apex. HEART AND MEDIASTINUM: Mildly enlarged heart. Tortuous aorta. Sternotomy. Unchanged appearance of the heart and mediastinum. LUNGS AND PLEURAL SPACES: Bibasilar atelectasis. Resolved right pneumothorax.No pleural effusion. OSSEOUS STRUCTURES: Age-appropriate appearance. No acute focal finding. IMPRESSION: Newly placed chest tube on the right and at the apex. Resolved right pneumothorax. No pleural effusion. Bibasilar atelectasis. Dictated by Yomi Maldonado MD @ 04/15/2023 2:41:25 PM (Electronically Signed)
[2023-04-15] MEDS: fentaNYL 100 MCG/2 ML inj 50 MCG IVP (13:19)
[2023-04-15] MEDS: MIDAZOLAM HCL 1 MG/ML inj IVP (13:19)
--- NOTE | 2023-04-15 13:47 | PM.PROC ---
Procedure Note Date Seen: 04/15/23 Will [facility] bill your pro fee for this procedure?: Yes Pre-op diagnosis: Right loculated pneumothorax, chest tube dislodgment Post-op diagnosis: same Procedure: Right tube thoracostomy placement Procedure Description: The patient had undergone a tube thoracostomy for a right-sided pneumothorax. CT scan showed this to be loculated and despite the chest tube in appropriate position, the pneumothorax had not resolved. The patient does have a history of pneumothorax requiring chest tube placement after his heart valve replacement last year. There appeared to be loculations of air on the CT scan. Because of this, arrangements were made to transfer to facility with a thoracic surgeon and or IR. Follow-up chest x-ray 1.5 hours later showed the tube had actually pulled out of the chest. Because of the size of the pneumothorax and await for transfer, I recommended replacement of the chest tube. The patient agreed to proceed. The patient's vital signs were monitored throughout the procedure. The patient was situated in his bed with the head of the bed slightly elevated as he had only been NPO for 4 hours. Nursing administered 3 mg of Versed and 150 mcg of fentanyl IV. Once the patient was slightly drowsy, the chest was prepped and draped sterilely. The prior chest tube sutures were removed. Local anesthetic was injected into the skin and subcutaneous tissue around the prior incision. This incision was too small for me to fit my finger to palpate the tube and so using a scalpel I extended this for approximately half a cm. I was then able to palpate the tract. This was anesthetized with local anesthetic. I then removed the chest tube. However I was unable to palpate the tract into the chest as the intercostal muscles had appeared to already have closed. Therefore, using more 1% lidocaine I anesthetized the rib and intercostal muscles as well as the pleura. Then, using a Jayne clamp I was able to puncture into the pleural space. A large fitzpatrick of air was encountered. With my finger I palpated that there were fibrinous adhesions between the lung and the chest wall inferiorly. I then was able to slide a 20 [place] chest tube easily through the interspace into the chest cavity aiming towards the apex. This was then secured in place using to 0 silk. The tube was connected to a Pleur-Evac. There was a air leak noted with patient cough, however not at rest. Occlusive dressing was then applied. Postprocedure chest x-ray showed the tube in good position and the pneumothorax improved. The patient tolerated the procedure well. Anesthesia: local and other Surgeon: Lea Rios M.D. Estimated blood loss (mL): 1 Pathology: none sent Condition: stable Disposition: no change
--- NOTE | 2023-04-15 15:12 | PC.NURSE ---
End of shift- VSS, on 1L since 1345. R pneumothroax with chest tube in place. 1st chest tube was inserted yesterday evening, after his CT/chest xray it was found to be dislodged. Dr Rios inserted a new chest tube @[id number] see note. [facility] chamber to dry suction ( no continuous bubbling- it does not bubble). Suction is continuous at 20. Reports 2-3/10 pain at R chest tube insertion site- Scheduled tylenol is all he got this shift. Pending TX to [facility] in 4 or so hours due to pneumothorax getting worse upon CT/ chest xray this AM. Up SBA, voids in the urinal.
--- NOTE | 2023-04-15 17:50 | PC.NURSE ---
Patient transferred to [facility] via [facility] at 1750. [id number] given to Nurse Tori at [facility].
== END 2023-04-15 17:50 | disposition short-term general hospital (02) | DRG 200 ==
PROVIDERS: Admitting Provider Family Medicine; PCP Family Medicine; Visit Provider Family Medicine
DX: J93.9 Pneumothorax, unspecified (principal); I47.1 Supraventricular tachycardia; T85.628A Displacement of other specified internal prosthetic devices, implants and grafts, initial encounter; I71.20 Thoracic aortic aneurysm, without rupture, unspecified; R73.03 Prediabetes; I72.3 Aneurysm of iliac artery; F34.1 Dysthymic disorder; N40.0 Benign prostatic hyperplasia without lower urinary tract symptoms; G47.33 Obstructive sleep apnea (adult) (pediatric); Z99.89 Dependence on other enabling machines and devices; Z95.2 Presence of prosthetic heart valve; Z79.82 Long term (current) use of aspirin
CPT/HCPCS: 00524; 32551; 36415; 71045; 71275; 80048; 84443; 85025; 94761; 99140; A9270; J2250; J2704; J3010; Q9967

== ENCOUNTER 2023-04-15 17:40 | Outpatient (CLI) | payer MEDICARE, BC, SELFPAY | END 2023-04-15 17:41 | disposition home or self-care (01) | PROVIDERS: PCP Family Medicine; Visit Provider Family Medicine | DX: J93.9 Pneumothorax, unspecified (principal) | CPT/HCPCS: A0425; A0426 ==